=== PATIENT | male | born 1980 | race Caucasian/White ===

== ENCOUNTER 2021-10-21 08:40 | Emergency (ER) | payer BC ==
[~2021-10-21] VITALS: Ht 175.3 cm; Wt 103.6 kg
[~2021-10-21 08:40] MED LIST: BYSTOLIC10 MG PO; PRINIVIL10 MG PO; SIMCOR 1000 MG-1 TER PO
[2021-10-21 08:51] VITALS: TEMP 100.1
[2021-10-21 10:34] VITALS: BP 126/76; PULSE 96
== END 2021-10-21 10:34 | disposition home or self-care (01) ==
LOC: COL.ER 08:40
DX: U07.1 COVID-19 (principal); I10 Essential (primary) hypertension; E78.5 Hyperlipidemia, unspecified; Z79.899 Other long term (current) drug therapy